=== PATIENT | male | born 1955 | race Two or more races ===

== ENCOUNTER 2016-07-02 16:16 | Inpatient (IN) | payer MEDICAID ==
[~2016-07-02] VITALS: Ht 165.1 cm; Wt 65.8 kg
[2016-07-02] MEDS ORDERED: Famotidine 20 MG/ 2ML VIAL IVP ONE (16:30)
[2016-07-02 17:27] LABS: MEAN CORPUSCULAR HEMOGLOBIN 31.6 PG (27.0-31.0); MEAN CORPUSCULAR HGB CONC 33.8 G/DL (32.0-36.0); MEAN CORPUSCULAR VOLUME 93 FL (80-99); MEAN PLATELET VOLUME 6.4 FL (6.5-10.1); PLATELET COUNT 198 K/UL (150-450); WHITE BLOOD COUNT 15.5 K/UL (4.8-10.8)
[2016-07-02 17:30] LABS: BASOPHILS % (AUTO) 0.8 % (0.0-2.0); EOSINOPHILS % (AUTO) 0.2 % (0.0-3.0); LYMPHOCYTES % (AUTO) 4.7 % (20.0-45.0); MONOCYTES % (AUTO) 4.5 % (1.0-10.0); NEUTROPHILS % (AUTO) 89.9 % (45.0-75.0)
[2016-07-02 17:38] LABS: APPEARANCE,URINE CLEAR; KETONES,URINE NEGATIVE (NEGATIVE); LEUKOCYTE ESTERASE ,URINE NEGATIVE (NEGATIVE); NITRITE,URINE NEGATIVE (NEGATIVE); PH,URINE 5 (4.5-8.0); PROTEIN,URINE NEGATIVE (NEGATIVE); UROBILINOGEN,URINE NORMAL MG/DL (0.0-1.0)
[2016-07-02 17:45] LABS: TROPONIN I < 0.30 ng/mL (<=0.30)
[2016-07-02 17:46] LABS: ALANINE AMINOTRANSFERASE 24 U/L (3-41); ALBUMIN/GLOBULIN RATIO 1.3 (1.0-2.7); ANION GAP 21 (5-15); ASPARTATE AMINO TRANSFERASE 23 U/L (5-40); CALCIUM 9.4 mg/dL (8.6-10.2); CARBON DIOXIDE 20 mEQ/L (20-30); CHLORIDE 100 mEQ/L (98-107); CREATININE 0.9 mg/dL (0.7-1.2); GLOMERULAR FILTRATION RATE > 60 mL/min (>60); HEMOLYSIS 27; LIPASE 28 U/L (< 60); POTASSIUM 3.5 mEQ/L (3.4-4.9); SODIUM 141 mEQ/L (135-145); TOTAL PROTEIN 7.6 g/dL (6.6-8.7)
[2016-07-02] MEDS ORDERED: Ampicillin/Sulbactam Sod 3 GM in NS 110 ML IVPB ONE (18:00)
[2016-07-02] MEDS ORDERED: Unasyn 3gm Inj ONE (18:04)
[2016-07-02 18:11] LABS: BILIRUBIN,DIRECT 0.2 mg/dL (0.1-0.3)
[2016-07-02 18:12] VITALS: BP 114/67
[2016-07-02 18:59] LABS: REFLEX LACTIC ACID YES OR NO YES
[2016-07-02] MEDS ORDERED: HTN MED (19:49)
[2016-07-02] MEDS ORDERED: IBUPROFEN600 MG ORAL (19:49)
[2016-07-02] MEDS ORDERED: GOUT MED (19:49)
[2016-07-02] MEDS ORDERED: DEPRESSION MED (19:50)
[2016-07-02] MEDS ORDERED: Morphine Sulfate 2mg/ml Inj IVP PRN (20:30)
[2016-07-02] MEDS ORDERED: Mylanta II UD 30ml ORAL PRN (20:30)
[2016-07-02] MEDS ORDERED: Nitroglycerin Subl 0.4mg tab (Bottle Of 25) SL PRN (20:30)
[2016-07-02] MEDS ORDERED: Miralax 17gm pkt ORAL PRN (20:30)
--- NOTE | 2016-07-02 22:04 | Emergency Room Report ---
History of Present Illness General Chief Complaint: Abdominal Pain Source: Patient, EMS Present Illness HPI Patient is a 61-year-old male presented after having increased epigastric pain. Patient had gradual onset of symptoms. Patient reports having prior history of pain after drinking coffee. He states that he had been having some nausea. Patient states he has not had alcohol for several months. Patient denies any history of ulcer disease a cardiac disease. Allergies: Coded Allergies: No Known Allergies (Unverified , 07/02/16) Patient History Past Medical History: see triage record Reviewed Nursing Documentation: PMH: Agreed, PSxH: Agreed Nursing Documentation-PMH Hx Hypertension: Yes Review of Systems All Other Systems: negative except mentioned in HPI Physical Exam Vital Signs Date Time Temp Pulse Resp B/P Pulse Ox O2 Delivery O2 Flow Rate FiO2 07/02/16 15:51 100.6 142 16 159/109 97 07/02/16 18:12 Room Air Sp02 EP Interpretation: reviewed, normal General Appearance: normal inspection, well appearing, no apparent distress, alert, GCS 15 Head: atraumatic ENT: normal ENT inspection, hearing grossly normal, normal voice Neck: normal inspection, full range of motion, supple, no bony tend Respiratory: normal inspection, lungs clear, normal breath sounds, no respiratory distress, no retraction, no wheezing Cardiovascular #1: regular rate, rhythm, no edema Gastrointestinal: normal inspection, normal bowel sounds, non tender, soft, no guarding, no hernia Genitourinary: no CVA tenderness Musculoskeletal: normal inspection, back normal, normal range of motion Neurologic: normal inspection, alert, oriented x3, responsive, 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 Differential diagnoses included ischemic bowel, appendicitis, perforated viscus, abdominal aortic aneurysm, inferior myocardial infarction, viral gastroenteritis. Because of complexity of patient's case laboratory testing and imaging studies were ordered. Patient noted have elevated white blood count. Laboratory testing also showed elevated lactic acid level. Patient was started on IV Fluids and antibiotics. Dr. Aj Lau was contacted for inpatient management. Labs Test 07/02/16 16:39 07/02/16 16:50 07/02/16 19:25 White Blood Count 15.5 K/UL (4.8-10.8) Red Blood Count 5.10 M/UL (4.70-6.10) Hemoglobin 16.1 G/DL (14.2-18.0) Hematocrit 47.5 % (42.0-52.0) Mean Corpuscular Volume 93 FL (80-99) Mean Corpuscular Hemoglobin 31.6 PG (27.0-31.0) Mean Corpuscular Hemoglobin Concent 33.8 G/DL (32.0-36.0) Red Cell Distribution Width 12.0 % (11.6-14.8) Platelet Count 198 K/UL (150-450) Mean Platelet Volume 6.4 FL (6.5-10.1) Neutrophils (%) (Auto) 89.9 % (45.0-75.0) Lymphocytes (%) (Auto) 4.7 % (20.0-45.0) Monocytes (%) (Auto) 4.5 % (1.0-10.0) Eosinophils (%) (Auto) 0.2 % (0.0-3.0) Basophils (%) (Auto) 0.8 % (0.0-2.0) Sodium Level 141 mEQ/L (135-145) Potassium Level 3.5 mEQ/L (3.4-4.9) Chloride Level 100 mEQ/L (98-107) Carbon Dioxide Level 20 mEQ/L (20-30) Anion Gap 21 (5-15) Blood Urea Nitrogen 16 mg/dL (7-23) Creatinine 0.9 mg/dL (0.7-1.2) Estimat Glomerular Filtration Rate > 60 mL/min (>60) Glucose Level 106 mg/dL (74-106) Calcium Level 9.4 mg/dL (8.6-10.2) Total Bilirubin 1.1 mg/dL (0.0-1.2) Direct Bilirubin 0.2 mg/dL (0.1-0.3) Aspartate Amino Transf (AST/SGOT) 23 U/L (5-40) Alanine Aminotransferase (ALT/SGPT) 24 U/L (3-41) Alkaline Phosphatase 61 U/L (40-129) Troponin I < 0.30 ng/mL (<=0.30) Total Protein 7.6 g/dL (6.6-8.7) Albumin 4.3 g/dL (3.5-5.2) Globulin 3.3 g/dL Albumin/Globulin Ratio 1.3 (1.0-2.7) Lipase 28 U/L (< 60) Urine Color Pale yellow Urine Appearance Clear Urine pH 5 (4.5-8.0) Urine Specific [place] 1.015 (1.005-1.035) Urine Protein Negative (NEGATIVE) Urine Glucose (UA) Negative (NEGATIVE) Urine Ketones Negative (NEGATIVE) Urine Occult Blood Negative (NEGATIVE) Urine Nitrite Negative (NEGATIVE) Urine Bilirubin Negative (NEGATIVE) Urine Urobilinogen Normal MG/DL (0.0-1.0) Urine Leukocyte Esterase Negative (NEGATIVE) Lactic Acid Level 1.50 mmol/L (0.66-2.22) Last Vital Signs Date Time Temp Pulse Resp B/P Pulse Ox O2 Delivery O2 Flow Rate FiO2 07/02/16 18:12 99.0 104 23 114/67 97 Room Air Status: unchanged Disposition: ADMITTED INPATIENT Condition: Serious Referrals: NOT CHOSEN GISELE/,REFERRING (PCP) Yunier Powers Jul 02, 2016 22:04
[2016-07-02] MEDS: D5 1/2NS 1,000 ML IV SCH (22:13)
[2016-07-02] MEDS: Heparin 5000 units/ml inj SUBQ SCH (22:14)
[2016-07-02 22:33] VITALS: BP 117/70
[2016-07-03] VITALS: BP 125/71
[2016-07-03] MEDS: Piperacillin/Tazobactam 3.375 GM in NS 110 ML IVPB SCH ×4 (00:06→23:51)
[2016-07-03 04:00] VITALS: BP 119/76
[2016-07-03 07:10] LABS: BASOPHILS % (AUTO) 0.6 % (0.0-2.0); EOSINOPHILS % (AUTO) 0.3 % (0.0-3.0); LYMPHOCYTES % (AUTO) 8.9 % (20.0-45.0); MEAN CORPUSCULAR HEMOGLOBIN 31.2 PG (27.0-31.0); MEAN CORPUSCULAR HGB CONC 33.9 G/DL (32.0-36.0); MEAN CORPUSCULAR VOLUME 92 FL (80-99); MEAN PLATELET VOLUME 7.2 FL (6.5-10.1); MONOCYTES % (AUTO) 5.8 % (1.0-10.0); NEUTROPHILS % (AUTO) 84.5 % (45.0-75.0); PLATELET COUNT 190 K/UL (150-450); RED BLOOD COUNT 4.91 M/UL (4.70-6.10); RED CELL DISTRIBUTION WIDTH 11.7 % (11.6-14.8); WHITE BLOOD COUNT 11.4 K/UL (4.8-10.8)
[2016-07-03 07:44] LABS: ALANINE AMINOTRANSFERASE 18 U/L (3-41); ALBUMIN/GLOBULIN RATIO 1.5 (1.0-2.7); AMYLASE 23 U/L (10-110); ANION GAP 18 (5-15); ASPARTATE AMINO TRANSFERASE 17 U/L (5-40); CALCIUM 8.7 mg/dL (8.6-10.2); CARBON DIOXIDE 24 mEQ/L (20-30); CHLORIDE 96 mEQ/L (98-107); GLOMERULAR FILTRATION RATE > 60 mL/min (>60); HEMOLYSIS 3; LIPASE 16 U/L (< 60); POTASSIUM 3.5 mEQ/L (3.4-4.9); SODIUM 138 mEQ/L (135-145); TOTAL PROTEIN 6.6 g/dL (6.6-8.7)
[2016-07-03 07:55] VITALS: BP 141/82
[2016-07-03 07:56] LABS: BILIRUBIN,DIRECT 0.3 mg/dL (0.1-0.3)
[2016-07-03] MEDS: Pantoprazole Inj IV SCH (08:20)
[2016-07-03] MEDS: Heparin 5000 units/ml inj SUBQ SCH ×2 (08:36→20:43)
--- NOTE | 2016-07-03 10:28 | Consultation ---
DATE OF CONSULTATION: 07/03/2016 GASTROENTEROLOGY CONSULTATION CHIEF COMPLAINT: Abdominal pain. HISTORY OF PRESENT ILLNESS: This is a 61-year-old male, admitted to hospital with complaint of epigastric abdominal pain associated with nausea. No hematemesis. No dysphagia. No odynophagia. No melena. No hematochezia. No weight loss. PAST MEDICAL HISTORY: None. MEDICATIONS: None. ALLERGIES: None. SOCIAL HISTORY: The patient denies any tobacco usage. The patient denies any IV drug use. The patient apparently he used to drink, quit about three months ago. FAMILY HISTORY: Noncontributory. REVIEW OF SYSTEMS: A 10-point review of systems was performed and pertinent positives in history of present illness. PHYSICAL EXAMINATION: VITAL SIGNS: Temperature 97.7 degrees, pulse 71, respirations 18, and blood pressure 119/76. HEENT: Normocephalic and atraumatic. Sclerae anicteric. NECK: Supple. No evidence of lymphadenopathy. CARDIOVASCULAR: Regular rate and rhythm. Plus S1 and S2. LUNGS: Clear to auscultation bilaterally. ABDOMEN: Soft. There is tenderness to palpation in the epigastric area. No rebound. No guarding. EXTREMITIES: No cyanosis. No clubbing. No edema. LABORATORY DATA: White count is 11.4, hemoglobin 16, hematocrit 45, and platelet count is 190,000. Sodium is 141, potassium 3.5, BUN is 16, and creatinine 0.9. Liver function normal. Lipase is normal. ASSESSMENT: This is a 61-year-old male with epigastric abdominal pain. The patient was diagnosed with epigastric ulcer, gastritis, gallbladder disease, pancreatitis. PLAN: Plan to get a CT of the abdomen and pelvis with contrast. Advance diet. Repeat laboratories. Start the patient on Protonix. I want to thank, Dr. Aj Lau, for this kind referral. London Linton M.D. DR: ARANZA JOB#: [id number] CC: Aj Lau M.D.; Fax#: [phone]
[2016-07-03] MEDS: D5 1/2NS 1,000 ML IV SCH ×2 (11:20→20:50)
[2016-07-03 12:00] VITALS: BP 148/82
--- NOTE | 2016-07-03 15:58 | Consultation ---
History of Present Illness General Date patient seen: Jul 03, 2016 Time patient seen: 14:00 Chief Complaint: Abdominal Pain Referring physician: dr Lau Reason for Consultation: inpatient management Present Illness HPI 61-year-old male presented with increased epigastric pain with gradual onset of symptoms. Patient reported having prior history of the same pain after drinking coffee. reported some nausea, no vomiting denied blood in stool no ETOH x few months . No prior history of cardiac disease, no chest pain, no SOB, no palpitations denies any GI problems in the past Workup in ED revealed leucocytosis, no fever. stable LFT, lipase normal lactic acid, stable electrolytes, patient was admitted for further management Allergies: Coded Allergies: No Known Allergies (Unverified , 07/02/16) Medication History Scheduled PRN Ibuprofen* (Motrin*), 600 MG ORAL Q6H PRN for For Pain, (Reported) Miscellaneous Medications [Depression Med], (Reported) [Gout Med], (Reported) [Htn Med], (Reported) Patient History History Provided By: Patient Healthcare decision maker Resuscitation status Full Code Advanced Directive on File Past Medical/Surgical History Past Medical/Surgical History: (1) HTN (hypertension) Review of Systems Eye: Reports: other - cataract ENT: Reports: no symptoms Respiratory: Reports: no symptoms Cardiovascular: Reports: other - HTN Gastrointestinal: Reports: see HPI Genitourinary: Reports: no symptoms Musculoskeletal: Reports: no symptoms Psychiatric: Reports: no symptoms Neurological: Reports: no symptoms Endocrine: Reports: no symptoms Hematologic/Lymphatic: Reports: no symptoms Physical Exam General Appearance: WD/WN, no apparent distress, alert Lines, tubes and drains: peripheral HEENT: normocephalic, mucous membranes moist Neck: non-tender, normal alignment, supple Respiratory/Chest: chest wall non-tender, lungs clear, normal breath sounds, no respiratory distress, no accessory muscle use Cardiovascular/Chest: normal peripheral pulses, normal rate, regular rhythm, no JVD Abdomen: normal bowel sounds - mild epigastric tenderness, no rebound, no guarding , soft Extremities: non-tender, no calf tenderness, normal capillary refill Skin Exam: normal pigmentation, warm/dry Neurologic: no motor/sensory deficits, alert, oriented x 3, responsive, normal mood/affect Musculoskeletal: normal muscle bulk Last 24 Hour Vital Signs Date Time Temp Pulse Resp B/P Pulse Ox O2 Delivery O2 Flow Rate FiO2 07/03/16 13:59 98.4 07/03/16 12:00 101.5 82 19 148/82 95 Room Air 07/03/16 07:55 98.4 81 19 141/82 98 Room Air 07/03/16 04:00 97.7 71 18 119/76 97 Room Air 07/03/16 00:00 97.9 87 20 125/71 95 Room Air 07/02/16 22:45 99.3 07/02/16 22:33 99.3 90 18 117/70 97 Room Air 07/02/16 22:00 81 17 121/70 96 Room Air 07/02/16 18:12 99.0 104 23 114/67 97 Room Air 07/02/16 15:51 100.6 142 16 159/109 97 Intake and Output 07/02/16 07/03/16 19:00 07:00 Intake Total 610 ml 485.0 ml Balance 610 ml 485.0 ml Intake IV Total 610 ml 485.0 ml # Voids 1 Laboratory Tests Test 07/02/16 16:39 07/02/16 16:50 07/02/16 19:25 07/03/16 05:00 White Blood Count 15.5 K/UL (4.8-10.8) H 11.4 K/UL (4.8-10.8) H Red Blood Count 5.10 M/UL (4.70-6.10) 4.91 M/UL (4.70-6.10) Hemoglobin 16.1 G/DL (14.2-18.0) 15.3 G/DL (14.2-18.0) Hematocrit 47.5 % (42.0-52.0) 45.1 % (42.0-52.0) Mean Corpuscular Volume 93 FL (80-99) 92 FL (80-99) Mean Corpuscular Hemoglobin 31.6 PG (27.0-31.0) H 31.2 PG (27.0-31.0) H Mean Corpuscular Hemoglobin Concent 33.8 G/DL (32.0-36.0) 33.9 G/DL (32.0-36.0) Red Cell Distribution Width 12.0 % (11.6-14.8) 11.7 % (11.6-14.8) Platelet Count 198 K/UL (150-450) 190 K/UL (150-450) Mean Platelet Volume 6.4 FL (6.5-10.1) L 7.2 FL (6.5-10.1) Neutrophils (%) (Auto) 89.9 % (45.0-75.0) H 84.5 % (45.0-75.0) H Lymphocytes (%) (Auto) 4.7 % (20.0-45.0) L 8.9 % (20.0-45.0) L Monocytes (%) (Auto) 4.5 % (1.0-10.0) 5.8 % (1.0-10.0) Eosinophils (%) (Auto) 0.2 % (0.0-3.0) 0.3 % (0.0-3.0) Basophils (%) (Auto) 0.8 % (0.0-2.0) 0.6 % (0.0-2.0) Sodium Level 141 mEQ/L (135-145) 138 mEQ/L (135-145) Potassium Level 3.5 mEQ/L (3.4-4.9) 3.5 mEQ/L (3.4-4.9) Chloride Level 100 mEQ/L (98-107) 96 mEQ/L (98-107) L Carbon Dioxide Level 20 mEQ/L (20-30) 24 mEQ/L (20-30) Anion Gap 21 (5-15) H 18 (5-15) H Blood Urea Nitrogen 16 mg/dL (7-23) 15 mg/dL (7-23) Creatinine 0.9 mg/dL (0.7-1.2) 1.0 mg/dL (0.7-1.2) Estimat Glomerular Filtration Rate > 60 mL/min (>60) > 60 mL/min (>60) Glucose Level 106 mg/dL (74-106) 109 mg/dL (74-106) H Lactic Acid Level 2.10 mmol/L (0.66-2.22) 1.50 mmol/L (0.66-2.22) Calcium Level 9.4 mg/dL (8.6-10.2) 8.7 mg/dL (8.6-10.2) Total Bilirubin 1.1 mg/dL (0.0-1.2) 2.3 mg/dL (0.0-1.2) H Direct Bilirubin 0.2 mg/dL (0.1-0.3) 0.3 mg/dL (0.1-0.3) Aspartate Amino Transf (AST/SGOT) 23 U/L (5-40) 17 U/L (5-40) Alanine Aminotransferase (ALT/SGPT) 24 U/L (3-41) 18 U/L (3-41) Alkaline Phosphatase 61 U/L (40-129) 61 U/L (40-129) Troponin I < 0.30 ng/mL (<=0.30) Total Protein 7.6 g/dL (6.6-8.7) 6.6 g/dL (6.6-8.7) Albumin 4.3 g/dL (3.5-5.2) 4.0 g/dL (3.5-5.2) Globulin 3.3 g/dL 2.6 g/dL Albumin/Globulin Ratio 1.3 (1.0-2.7) 1.5 (1.0-2.7) Lipase 28 U/L (< 60) 16 U/L (< 60) Urine Color Pale yellow Urine Appearance Clear Urine pH 5 (4.5-8.0) Urine Specific [place] 1.015 (1.005-1.035) Urine Protein Negative (NEGATIVE) Urine Glucose (UA) Negative (NEGATIVE) Urine Ketones Negative (NEGATIVE) Urine Occult Blood Negative (NEGATIVE) Urine Nitrite Negative (NEGATIVE) Urine Bilirubin Negative (NEGATIVE) Urine Urobilinogen Normal MG/DL (0.0-1.0) Urine Leukocyte Esterase Negative (NEGATIVE) Activated Partial Thromboplast Time 29 SEC (23-33) Amylase Level 23 U/L (10-110) Height (Feet): 5 Height (Inches): 7.00 Weight (Pounds): 145 Medications Current Medications Medications (Trade) Dose Ordered Sig/Niraj Route PRN Reason Start Time Stop Time Status Last Admin Dose Admin Acetaminophen (Tylenol) 650 mg Q4H PRN ORAL fever 07/02/16 20:30 08/01/16 20:29 07/03/16 13:00 Al Hydroxide/Mg Hydroxide (Mylanta II) 30 ml Q6H PRN ORAL dyspepsia 07/02/16 20:30 08/01/16 20:29 Dextrose STAT PRN IV Hypoglycemia 07/02/16 20:30 08/01/16 20:29 Dextrose/Sodium Chloride (D5 0.45% NS) 1,000 ml @ 75 mls/hr [id number] IV 07/02/16 22:00 08/01/16 21:59 07/02/16 22:13 Diphenhydramine HCl (Benadryl) 25 mg Q6H PRN ORAL Itching/Pruritis 07/02/16 20:30 08/01/16 20:29 Heparin Sodium (Porcine) (Heparin 5000 units/ml) 5,000 units EVERY 12 HOURS SUBQ 07/02/16 22:00 08/01/16 21:59 07/03/16 08:36 Morphine Sulfate (Morphine Sulfate) 2 mg EVERY 4 HOURS PRN IVP severe Pain (Pain Scale 7-10) 07/02/16 20:30 07/09/16 20:29 07/02/16 22:15 Nitroglycerin (Ntg) 0.4 mg Q5M X 3 DOSES PRN SL Prn Chest Pain 07/02/16 20:30 08/01/16 20:29 Ondansetron HCl (Zofran) 4 mg Q6H PRN IVP Nausea & Vomiting 07/02/16 20:30 08/01/16 20:29 Pantoprazole (Protonix) 40 mg DAILY IV 07/03/16 09:00 08/02/16 08:59 07/03/16 08:20 Piperacillin Sod/ Tazobactam Sod/ Sodium Chloride (Zosyn/Sodium Chloride) 110 ml @ 27.5 mls/hr Q8H IVPB 07/03/16 00:00 07/10/16 00:00 07/03/16 08:19 Polyethylene Glycol (Miralax) 17 gm HSPRN PRN ORAL Constipation 07/02/16 20:30 08/01/16 20:29 Temazepam (Restoril) 15 mg HSPRN PRN ORAL Insomnia 07/02/16 20:30 07/09/16 20:29 Assessment/Plan Assessment/Plan ASSESSMENT possible sepsis epigastric abdominal pain (ulcer vs gastritis vs GB disease vs pancreatitis vs infectious etiology/enteritis) HTN PLAN OF CARE [facility] floor IVF Liquid diet antiemetic prn CT AP today GI follows advance diet as tolerated after CT A/P taken started on Protonix close BP monitoring, currently stable DVT prophylaxis avoid tobacco, coffee, NSAIDs pain management case discussed and evaluated by supervising physician Mauricio (Lisa),Cherie ELI Jul 03, 2016 15:58
[2016-07-03 16:00] VITALS: BP 122/61
--- NOTE | 2016-07-03 16:13 | History & Physical ---
History and Physical History & Physicial Dictated for Int Med-Dr Lau no. [id number]. JOSE JOSHI Jul 03, 2016 16:13
[2016-07-03 20:00] VITALS: BP 129/59
--- NOTE | 2016-07-03 21:48 | History and Physical Report ---
DATE OF ADMISSION: 07/02/[address] Lau. CHIEF COMPLAINT: The patient is a 61-year-old male, presents with chief complaint of epigastric pain. HISTORY OF PRESENT ILLNESS: The patient states he has been having increasing epigastric pain over the last week. This has been worsening over the last couple of days. The patient states the pain has become intolerable. The patient previously had history of epigastric pain after drinking coffee. The patient states he stopped drinking alcohol for several months secondary to epigastric pain. The patient presented to [facility]. The patient was admitted for epigastric pain to rule out pancreatitis versus peptic ulcer disease. REVIEW OF SYSTEMS: Constitutional: The patient denies weight loss or weight gain. The patient denies fevers or chills. HEENT: The patient denies ear or throat pain. Cardiovascular: The patient denies palpitations or chest pain. Chest: The patient denies wheeze or shortness of breath. Abdomen: The patient complains of epigastric pain as above. The patient denies nausea, vomiting, diarrhea, or constipation. Genitourinary: The patient denies dysuria or increased frequency of urination. Neuromuscular: The patient denies seizures or generalized weakness. PAST MEDICAL HISTORY: 1. Gout. 2. Major depression. PAST SURGICAL HISTORY: The patient denies. CURRENT MEDICATIONS: Unknown. ALLERGIES: No known drug allergies. SOCIAL HISTORY: The patient is single and lives alone. The patient denies tobacco or alcohol use. PHYSICAL EXAMINATION: VITAL SIGNS: Temperature is 97.9, respirations 20, pulse 87, and blood pressure 125/71. GENERAL: The patient is a well-developed and well-nourished male, in no apparent distress. HEENT: Eyes, pupils are equal and responsive to light and accommodation. Extraocular movements are intact. NECK: Supple without lymphadenopathy. CHEST: Lungs are clear to auscultation bilaterally without wheezes or rales. CARDIOVASCULAR: Regular rhythm and rate. S1 and S2 are normal without murmurs, rubs, or gallops. ABDOMEN: Soft, diffusely tender with positive bowel sounds. No evidence of hepatosplenomegaly. Currently, no rebound or guarding. EXTREMITIES: Negative for clubbing, cyanosis, or edema. RECTAL/GENITAL: Refused. NEUROLOGIC: Cranial nerves II through XII were grossly intact without focal deficits. Motor strength is 5/5 bilaterally. Deep tendon reflexes are 2+ plantar. LABORATORY STUDIES: WBC 15.5, hemoglobin 16.1, hematocrit 47.5, and platelets 198,000. Sodium 141, potassium 3.5, chloride 100, CO2 21, BUN 16, creatinine 0.9, and glucose 106. Total bilirubin elevated at 2.3. Urinalysis was within normal limits. ASSESSMENT: This is a 61-year-old male. 1. Epigastric pain. 2. Elevated liver function tests. 3. Gout. 4. Major depression. TREATMENT: 1. Epigastric pain/elevated liver function tests. A Gastroenterology consultation is pending with Dr. Linton. We will follow recommendations of Gastroenterology. A CT scan of the abdomen and pelvis is pending. We will follow recommendations of Gastroenterology. 2. Gout. 3. Major depression. Jm Quintero M.D. DR: CRYSTAL JOB#: [id number] CC:
[2016-07-04] VITALS: BP 102/56
[2016-07-04 04:00] VITALS: BP 116/70
[2016-07-04] MEDS: Piperacillin/Tazobactam 3.375 GM in NS 110 ML IVPB SCH ×3 (07:56→23:43)
[2016-07-04] MEDS: Heparin 5000 units/ml inj SUBQ SCH ×2 (07:57→21:19)
[2016-07-04] MEDS: Pantoprazole Inj IV SCH (07:58)
[2016-07-04 08:00] VITALS: BP 121/77
--- NOTE | 2016-07-04 09:03 | General Progress Note ---
Assessment/Plan Problem List: (1) Abdominal pain ICD Codes: R10.9 - Unspecified abdominal pain SNOMED: 62616914 (2) HTN (hypertension) ICD Codes: I10 - Essential (primary) hypertension SNOMED: 67425630 Assessment/Plan fu CT advance diet EGD in am Subjective ROS Limited/Unobtainable: Yes Allergies: Coded Allergies: No Known Allergies (Unverified , 07/02/16) Subjective abd pain Objective Last 24 Hour Vital Signs Date Time Temp Pulse Resp B/P Pulse Ox O2 Delivery O2 Flow Rate FiO2 07/04/16 04:00 97.5 71 19 116/70 96 Room Air 07/04/16 04:00 97.5 71 19 116/70 97 Room Air 07/04/16 00:12 97.2 07/04/16 00:10 97.2 07/04/16 00:00 97.2 75 20 102/56 97 Room Air 07/03/16 20:00 100.0 80 20 129/59 95 Room Air 07/03/16 16:00 99.0 76 18 122/61 94 Room Air 07/03/16 12:00 101.5 82 19 148/82 95 Room Air Intake and Output 07/03/16 07/04/16 19:00 07:00 Intake Total 587.5 ml 1092.5 ml Output Total 390 ml Balance 587.5 ml 702.5 ml Intake IV Total 587.5 ml 1092.5 ml Output Urine Total 390 ml # Voids 2 Height (Feet): 5 Height (Inches): 7.00 Weight (Pounds): 145 General Appearance: alert EENT: normal ENT inspection Neck: supple Cardiovascular: normal rate Respiratory/Chest: decreased breath sounds Abdomen: normal bowel sounds, soft, tender Extremities: non-tender ANGUS CHARLES Jul 04, 2016 09:03
[2016-07-04 10:12] LABS: EOSINOPHILS % (AUTO) 3.7 % (0.0-3.0); LYMPHOCYTES % (AUTO) 21.8 % (20.0-45.0); MEAN CORPUSCULAR HEMOGLOBIN 30.7 PG (27.0-31.0); MEAN CORPUSCULAR HGB CONC 33.6 G/DL (32.0-36.0); MEAN CORPUSCULAR VOLUME 91 FL (80-99); MEAN PLATELET VOLUME 7.4 FL (6.5-10.1); MONOCYTES % (AUTO) 10.7 % (1.0-10.0); NEUTROPHILS % (AUTO) 62.9 % (45.0-75.0); PLATELET COUNT 170 K/UL (150-450); RED BLOOD COUNT 5.06 M/UL (4.70-6.10); RED CELL DISTRIBUTION WIDTH 11.5 % (11.6-14.8); WHITE BLOOD COUNT 5.3 K/UL (4.8-10.8)
[2016-07-04 10:26] LABS: ALANINE AMINOTRANSFERASE 17 U/L (3-41); ALBUMIN/GLOBULIN RATIO 1.1 (1.0-2.7); ANION GAP 14 (5-15); ASPARTATE AMINO TRANSFERASE 15 U/L (5-40); CALCIUM 8.2 mg/dL (8.6-10.2); CARBON DIOXIDE 25 mEQ/L (20-30); CHLORIDE 97 mEQ/L (98-107); CREATININE 0.8 mg/dL (0.7-1.2); GLOMERULAR FILTRATION RATE > 60 mL/min (>60); HEMOLYSIS 4; POTASSIUM 3.9 mEQ/L (3.4-4.9); SODIUM 136 mEQ/L (135-145); TOTAL PROTEIN 6.5 g/dL (6.6-8.7)
[2016-07-04 10:47] LABS: AMYLASE 25 U/L (10-110); LIPASE 23 U/L (< 60)
[2016-07-04 10:52] LABS: BILIRUBIN,DIRECT 0.3 mg/dL (0.1-0.3)
[2016-07-04 12:00] VITALS: BP 105/75
[2016-07-04] MEDS: D5 1/2NS 1,000 ML IV SCH (12:51)
--- NOTE | 2016-07-04 13:51 | Pulmonology Progress Note ---
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 discussed and evaluated by supervising physician Subjective Allergies: Coded Allergies: No Known Allergies (Unverified , 07/02/16) Subjective leukocytosis resolved afebrile no signs of respiratory distress intermittent abdominal pain Objective Last 24 Hour Vital Signs Date Time Temp Pulse Resp B/P Pulse Ox O2 Delivery O2 Flow Rate FiO2 07/04/16 12:00 98.7 78 19 105/75 96 Room Air 07/04/16 08:00 97.9 96 18 121/77 100 Room Air 07/04/16 04:00 97.5 71 19 116/70 96 Room Air 07/04/16 04:00 97.5 71 19 116/70 97 Room Air 07/04/16 00:12 97.2 07/04/16 00:10 97.2 07/04/16 00:00 97.2 75 20 102/56 97 Room Air 07/03/16 20:00 100.0 80 20 129/59 95 Room Air 07/03/16 16:00 99.0 76 18 122/61 94 Room Air Intake and Output 07/03/16 07/04/16 19:00 07:00 Intake Total 587.5 ml 1092.5 ml Output Total 390 ml Balance 587.5 ml 702.5 ml Intake IV Total 587.5 ml 1092.5 ml Output Urine Total 390 ml # Voids 2 Objective General Appearance: WD/WN, no apparent distress, alert Lines, tubes and drains: peripheral HEENT: normocephalic, mucous membranes moist Neck: non-tender, normal alignment, supple Respiratory/Chest: chest wall non-tender, lungs clear, normal breath sounds, no respiratory distress, no accessory muscle use Cardiovascular/Chest: normal peripheral pulses, normal rate, regular rhythm, no JVD Abdomen: normal bowel sounds - mild epigastric tenderness, no rebound, no guarding , soft Extremities: non-tender, no calf tenderness, normal capillary refill Skin Exam: normal pigmentation, warm/dry Neurologic: no motor/sensory deficits, alert, oriented x 3, responsive, normal mood/affect Musculoskeletal: normal muscle bulk Microbiology Date/Time Source Procedure Growth Status 07/02/16 16:39 Blood Blood Culture - Preliminary NO GROWTH AFTER 24 HOURS Resulted 07/02/16 16:29 Blood Blood Culture - Preliminary NO GROWTH AFTER 24 HOURS Resulted Laboratory Tests 07/04/16 09:45: White Blood Count 5.3#, Red Blood Count 5.06, Hemoglobin 15.5, Hematocrit 46.2, Mean Corpuscular Volume 91, Mean Corpuscular Hemoglobin 30.7, Mean Corpuscular Hemoglobin Concent 33.6, Red Cell Distribution Width 11.5L, Platelet Count 170, Mean Platelet Volume 7.4, Neutrophils (%) (Auto) 62.9, Lymphocytes (%) (Auto) 21.8, Monocytes (%) (Auto) 10.7H, Eosinophils (%) (Auto) 3.7H, Basophils (%) ( Auto) 1.0, Sodium Level 136, Potassium Level 3.9, Chloride Level 97L, Carbon Dioxide Level 25, Anion Gap 14, Blood Urea Nitrogen 8, Creatinine 0.8, Estimat Glomerular Filtration Rate > 60, Glucose Level 114H, Calcium Level 8.2L, Total Bilirubin 1.5H, Direct Bilirubin 0.3, Aspartate Amino Transf (AST/SGOT) 15, Alanine Aminotransferase (ALT/SGPT) 17, Alkaline Phosphatase 49, Total Protein 6.5L, Albumin 3.5, Globulin 3.0, Albumin/Globulin Ratio 1.1, Amylase Level 25, Lipase 23 Current Medications Medications (Trade) Dose Ordered Sig/Niraj Route PRN Reason Start Time Stop Time Status Last Admin Dose Admin Acetaminophen (Tylenol) 650 mg Q4H PRN ORAL fever 07/02/16 20:30 08/01/16 20:29 07/03/16 23:05 Al Hydroxide/Mg Hydroxide (Mylanta II) 30 ml Q6H PRN ORAL dyspepsia 07/02/16 20:30 08/01/16 20:29 Dextrose STAT PRN IV Hypoglycemia 07/02/16 20:30 08/01/16 20:29 Dextrose/Sodium Chloride (D5 0.45% NS) 1,000 ml @ 75 mls/hr [id number] IV 07/02/16 22:00 08/01/16 21:59 07/04/16 12:51 Diphenhydramine HCl (Benadryl) 25 mg Q6H PRN ORAL Itching/Pruritis 07/02/16 20:30 08/01/16 20:29 Heparin Sodium (Porcine) (Heparin 5000 units/ml) 5,000 units EVERY 12 HOURS SUBQ 07/02/16 22:00 08/01/16 21:59 07/04/16 07:57 Morphine Sulfate (Morphine Sulfate) 2 mg EVERY 4 HOURS PRN IVP severe Pain (Pain Scale 7-10) 07/02/16 20:30 07/09/16 20:29 07/02/16 22:15 Nitroglycerin (Ntg) 0.4 mg Q5M X 3 DOSES PRN SL Prn Chest Pain 07/02/16 20:30 08/01/16 20:29 Ondansetron HCl (Zofran) 4 mg Q6H PRN IVP Nausea & Vomiting 07/02/16 20:30 08/01/16 20:29 Pantoprazole (Protonix) 40 mg DAILY IV 07/03/16 09:00 08/02/16 08:59 07/04/16 07:58 Piperacillin Sod/ Tazobactam Sod/ Sodium Chloride (Zosyn/Sodium Chloride) 110 ml @ 27.5 mls/hr Q8H IVPB 07/03/16 00:00 07/10/16 00:00 07/04/16 07:56 Polyethylene Glycol (Miralax) 17 gm HSPRN PRN ORAL Constipation 07/02/16 20:30 08/01/16 20:29 Temazepam (Restoril) 15 mg HSPRN PRN ORAL Insomnia 07/02/16 20:30 07/09/16 20:29 Mauricio ChahalCherie velazco NP Jul 04, 2016 13:51
--- NOTE | 2016-07-04 14:50 | Internal Med Progress Note ---
Subjective Date of Service: Jul 04, 2016 Physician Name JoshiJm Attending Physician Aj Lau MD Current Medications Medications (Trade) Dose Ordered Sig/Niraj Route PRN Reason Start Time Stop Time Status Last Admin Dose Admin Acetaminophen (Tylenol) 650 mg Q4H PRN ORAL fever 07/02/16 20:30 08/01/16 20:29 07/03/16 23:05 Al Hydroxide/Mg Hydroxide (Mylanta II) 30 ml Q6H PRN ORAL dyspepsia 07/02/16 20:30 08/01/16 20:29 Dextrose STAT PRN IV Hypoglycemia 07/02/16 20:30 08/01/16 20:29 Dextrose/Sodium Chloride (D5 0.45% NS) 1,000 ml @ 75 mls/hr [id number] IV 07/02/16 22:00 08/01/16 21:59 07/04/16 12:51 Diphenhydramine HCl (Benadryl) 25 mg Q6H PRN ORAL Itching/Pruritis 07/02/16 20:30 08/01/16 20:29 Heparin Sodium (Porcine) (Heparin 5000 units/ml) 5,000 units EVERY 12 HOURS SUBQ 07/02/16 22:00 08/01/16 21:59 07/04/16 07:57 Morphine Sulfate (Morphine Sulfate) 2 mg EVERY 4 HOURS PRN IVP severe Pain (Pain Scale 7-10) 07/02/16 20:30 07/09/16 20:29 07/02/16 22:15 Nitroglycerin (Ntg) 0.4 mg Q5M X 3 DOSES PRN SL Prn Chest Pain 07/02/16 20:30 08/01/16 20:29 Ondansetron HCl (Zofran) 4 mg Q6H PRN IVP Nausea & Vomiting 07/02/16 20:30 08/01/16 20:29 Pantoprazole (Protonix) 40 mg DAILY IV 07/03/16 09:00 08/02/16 08:59 07/04/16 07:58 Piperacillin Sod/ Tazobactam Sod/ Sodium Chloride (Zosyn/Sodium Chloride) 110 ml @ 27.5 mls/hr Q8H IVPB 07/03/16 00:00 07/10/16 00:00 07/04/16 07:56 Polyethylene Glycol (Miralax) 17 gm HSPRN PRN ORAL Constipation 07/02/16 20:30 08/01/16 20:29 Temazepam (Restoril) 15 mg HSPRN PRN ORAL Insomnia 07/02/16 20:30 07/09/16 20:29 Allergies: Coded Allergies: No Known Allergies (Unverified , 07/02/16) ROS Limited/Unobtainable: No Constitutional: Reports: no symptoms HEENT: Reports: no symptoms Cardiovascular: Reports: no symptoms Respiratory: Reports: no symptoms Gastrointestinal/Abdominal: Reports: abdominal pain Genitourinary: Reports: no symptoms Neurologic/Psychiatric: Reports: no symptoms Subjective 61 YO M admitted with epigastric pain and elevated liver function tests. Cover for Int Med-Dr Lau. Await endoscopy on 07/05/16. Objective Last Vital Signs Date Time Temp Pulse Resp B/P Pulse Ox O2 Delivery O2 Flow Rate FiO2 07/04/16 12:00 98.7 78 19 105/75 96 Room Air General Appearance: WD/WN, no apparent distress, alert EENT: PERRL/EOMI, normal ENT inspection, TMs normal Neck: non-tender, normal alignment, supple Cardiovascular: normal peripheral pulses, normal rate, regular rhythm, no gallop/murmur, no JVD Respiratory/Chest: chest wall non-tender, lungs clear, normal breath sounds, no respiratory distress, no accessory muscle use Abdomen: normal bowel sounds, no organomegaly, no mass, decreased bowel sounds , tender Extremities: normal range of motion, non-tender Neurologic: bankruptcy processor II-XII grossly normal, no motor/sensory deficits Skin: normal pigmentation, warm/dry Laboratory Tests Test 07/04/16 09:45 White Blood Count 5.3 K/UL (4.8-10.8) # Red Blood Count 5.06 M/UL (4.70-6.10) Hemoglobin 15.5 G/DL (14.2-18.0) Hematocrit 46.2 % (42.0-52.0) Mean Corpuscular Volume 91 FL (80-99) Mean Corpuscular Hemoglobin 30.7 PG (27.0-31.0) Mean Corpuscular Hemoglobin Concent 33.6 G/DL (32.0-36.0) Red Cell Distribution Width 11.5 % (11.6-14.8) L Platelet Count 170 K/UL (150-450) Mean Platelet Volume 7.4 FL (6.5-10.1) Neutrophils (%) (Auto) 62.9 % (45.0-75.0) Lymphocytes (%) (Auto) 21.8 % (20.0-45.0) Monocytes (%) (Auto) 10.7 % (1.0-10.0) H Eosinophils (%) (Auto) 3.7 % (0.0-3.0) H Basophils (%) (Auto) 1.0 % (0.0-2.0) Sodium Level 136 mEQ/L (135-145) Potassium Level 3.9 mEQ/L (3.4-4.9) Chloride Level 97 mEQ/L (98-107) L Carbon Dioxide Level 25 mEQ/L (20-30) Anion Gap 14 (5-15) Blood Urea Nitrogen 8 mg/dL (7-23) Creatinine 0.8 mg/dL (0.7-1.2) Estimat Glomerular Filtration Rate > 60 mL/min (>60) Glucose Level 114 mg/dL (74-106) H Calcium Level 8.2 mg/dL (8.6-10.2) L Total Bilirubin 1.5 mg/dL (0.0-1.2) H Direct Bilirubin 0.3 mg/dL (0.1-0.3) Aspartate Amino Transf (AST/SGOT) 15 U/L (5-40) Alanine Aminotransferase (ALT/SGPT) 17 U/L (3-41) Alkaline Phosphatase 49 U/L (40-129) Total Protein 6.5 g/dL (6.6-8.7) L Albumin 3.5 g/dL (3.5-5.2) Globulin 3.0 g/dL Albumin/Globulin Ratio 1.1 (1.0-2.7) Amylase Level 25 U/L (10-110) Lipase 23 U/L (< 60) Microbiology Date/Time Source Procedure Growth Status 07/02/16 16:39 Blood Blood Culture - Preliminary NO GROWTH AFTER 24 HOURS Resulted 07/02/16 16:29 Blood Blood Culture - Preliminary NO GROWTH AFTER 24 HOURS Resulted Intake and Output 07/03/16 07/04/16 19:00 07:00 Intake Total 587.5 ml 1092.5 ml Output Total 390 ml Balance 587.5 ml 702.5 ml Intake IV Total 587.5 ml 1092.5 ml Output Urine Total 390 ml # Voids 2 Assessment/Plan Problem List: (1) Epigastric pain Assessment & Plan: See GI note. Await endoscopy on Tue07/05/16. (2) Elevated liver enzymes Assessment & Plan: Resolving; see GI note. (3) Gout (4) Depression, major Status: progressing JM JOSHI Jul 04, 2016 14:50
[2016-07-04 16:00] VITALS: BP 116/70
[2016-07-04] MEDS ORDERED: Tubing IV Secondary IV ONE (16:57)
[2016-07-04] MEDS ORDERED: NS 275ml ONE (16:57)
[2016-07-04] MEDS ORDERED: D5 1/2NS 1000ml IV ONE (16:57)
[2016-07-04 20:00] VITALS: BP 138/72
[2016-07-05] VITALS (10 sets, daily range): BP systolic 115–150; BP diastolic 72–82
[2016-07-05] MEDS: D5 1/2NS 1,000 ML IV SCH ×2 (04:01→16:13)
[2016-07-05 06:24] LABS: BASOPHILS % (AUTO) 1.5 % (0.0-2.0); LYMPHOCYTES % (AUTO) 32.7 % (20.0-45.0); MEAN CORPUSCULAR HEMOGLOBIN 31.6 PG (27.0-31.0); MEAN CORPUSCULAR HGB CONC 34.8 G/DL (32.0-36.0); MEAN CORPUSCULAR VOLUME 91 FL (80-99); MEAN PLATELET VOLUME 6.4 FL (6.5-10.1); NEUTROPHILS % (AUTO) 41.9 % (45.0-75.0); PLATELET COUNT 183 K/UL (150-450); RED BLOOD COUNT 4.79 M/UL (4.70-6.10); RED CELL DISTRIBUTION WIDTH 11.4 % (11.6-14.8); WHITE BLOOD COUNT 4.6 K/UL (4.8-10.8)
[2016-07-05 06:43] LABS: ANION GAP 14 (5-15); BILIRUBIN,DIRECT 0.2 mg/dL (0.1-0.3); CALCIUM 8.7 mg/dL (8.6-10.2); CARBON DIOXIDE 24 mEQ/L (20-30); CHLORIDE 101 mEQ/L (98-107); CREATININE 0.8 mg/dL (0.7-1.2); GLOMERULAR FILTRATION RATE > 60 mL/min (>60); HEMOLYSIS 4; POTASSIUM 3.4 mEQ/L (3.4-4.9); SODIUM 139 mEQ/L (135-145); TOTAL PROTEIN 6.5 g/dL (6.6-8.7)
[2016-07-05] MEDS: Piperacillin/Tazobactam 3.375 GM in NS 110 ML IVPB SCH ×2 (08:07→16:13)
[2016-07-05] MEDS: Pantoprazole Inj IV SCH (08:08)
[2016-07-05] MEDS: Heparin 5000 units/ml inj SUBQ SCH ×2 (08:08→20:47)
--- NOTE | 2016-07-05 08:23 | Pre-Procedure Note/Attestation ---
Pre-Procedure Note/Attestation Complete Prior to Procedure Planned Procedure: not applicable Procedure Narrative: egd Indications for Procedure Pre-Operative Diagnosis: abd pain Attestation I attest that I discussed the nature of the procedure; its benefits; risks and complications; and alternatives (and the risks and benefits of such alternatives ), prior to the procedure, with the patient (or the patient's legal financial sales representative). I attest that, if there was a reasonable possibility of needing a blood transfusion, the patient (or the patient's legal financial sales representative) was given the [facility] standardized written summary, pursuant to the [employer] Blood Safety Act ([place] Health and Safety Code # 1645, as amended). I attest that I re-evaluated the patient just prior to the surgery and that there has been no change in the patient's H&P, except as documented below: ANGUS CHARLES Jul 05, 2016 08:23
[2016-07-05] MEDS ORDERED: Propofol 10mg/ml 20ml IV ONE (08:30)
--- NOTE | 2016-07-05 08:58 | Anethesia Preoperative Eval ---
Anesthesia Pre-op PMH/ROS General Date of Evaluation: Jul 05, 2016 Time of Evaluation: 08:30 ASA Score: ASA 2 Mallampati Score Class I : Soft palate, uvula, fauces, pillars visible Class II: Soft palate, uvula, fauces visible Class III: Soft palate, base of uvula visible Class IV: Only hard plate visible Mallampati Classification: Class II Surgeon: Royer Diagnosis: Abdominal pain Surgical Procedure: EGD Anesthesia History: none Allergies: Coded Allergies: No Known Allergies (Unverified , 07/02/16) Past Medical History Cardiovascular: Denies: CAD, HTN, NV, arrhythmia, other, valve dz Pulmonary: Denies: COPD, ALPA, asthma, other Gastrointestinal/Genitourinary: Denies: CRI, ESRD, GERD, other Neurologic/Psychiatric: Reports: depression/anxiety, Denies: CVA, TIA, dementia, other Endocrine: Denies: DM, hypothyroidism, other, steroids HEENT: Denies: MENTASTA (L), MENTASTA (R), cataract (L), cataract (R), glaucoma, other Hematology/Immune: Denies: DVT, anemia, bleeding disorder, other Musculoskeletal/Integumentary: Denies: DDD, DJD, OA, RA, edema, other PMH Narrative: HTN, depression PSxH Narrative: No prior surgery Anesthesia Pre-op Phys. Exam Physician Exam Last Vital Signs Date Time Temp Pulse Resp B/P Pulse Ox O2 Delivery O2 Flow Rate FiO2 07/05/16 08:22 97.9 68 20 138/79 99 Room Air Constitutional: NAD Neurologic: CN 2-12 intact Cardiovascular: RRR, no M/R/G Respiratory: CTA Gastrointestinal: S/NT/ND Airway Exam Mallampati Score: Class II MO: full ROM: full Teeth: intact Anesthesia Pre-op A/P Labs Hematology Test 07/04/16 09:45 07/05/16 05:00 White Blood Count 5.3 K/UL (4.8-10.8) # 4.6 K/UL (4.8-10.8) L Red Blood Count 5.06 M/UL (4.70-6.10) 4.79 M/UL (4.70-6.10) Hemoglobin 15.5 G/DL (14.2-18.0) 15.1 G/DL (14.2-18.0) Hematocrit 46.2 % (42.0-52.0) 43.5 % (42.0-52.0) Mean Corpuscular Volume 91 FL (80-99) 91 FL (80-99) Mean Corpuscular Hemoglobin 30.7 PG (27.0-31.0) 31.6 PG (27.0-31.0) H Mean Corpuscular Hemoglobin Concent 33.6 G/DL (32.0-36.0) 34.8 G/DL (32.0-36.0) Red Cell Distribution Width 11.5 % (11.6-14.8) L 11.4 % (11.6-14.8) L Platelet Count 170 K/UL (150-450) 183 K/UL (150-450) Mean Platelet Volume 7.4 FL (6.5-10.1) 6.4 FL (6.5-10.1) L Neutrophils (%) (Auto) 62.9 % (45.0-75.0) 41.9 % (45.0-75.0) L Lymphocytes (%) (Auto) 21.8 % (20.0-45.0) 32.7 % (20.0-45.0) Monocytes (%) (Auto) 10.7 % (1.0-10.0) H 14.0 % (1.0-10.0) H Eosinophils (%) (Auto) 3.7 % (0.0-3.0) H 10.0 % (0.0-3.0) H Basophils (%) (Auto) 1.0 % (0.0-2.0) 1.5 % (0.0-2.0) Chemistry Test 07/04/16 09:45 07/05/16 05:00 Sodium Level 136 mEQ/L (135-145) 139 mEQ/L (135-145) Potassium Level 3.9 mEQ/L (3.4-4.9) 3.4 mEQ/L (3.4-4.9) Chloride Level 97 mEQ/L (98-107) L 101 mEQ/L (98-107) Carbon Dioxide Level 25 mEQ/L (20-30) 24 mEQ/L (20-30) Anion Gap 14 (5-15) 14 (5-15) Blood Urea Nitrogen 8 mg/dL (7-23) 9 mg/dL (7-23) Creatinine 0.8 mg/dL (0.7-1.2) 0.8 mg/dL (0.7-1.2) Estimat Glomerular Filtration Rate > 60 mL/min (>60) > 60 mL/min (>60) Glucose Level 114 mg/dL (74-106) H 109 mg/dL (74-106) H Calcium Level 8.2 mg/dL (8.6-10.2) L 8.7 mg/dL (8.6-10.2) Total Bilirubin 1.5 mg/dL (0.0-1.2) H 1.0 mg/dL (0.0-1.2) Direct Bilirubin 0.3 mg/dL (0.1-0.3) 0.2 mg/dL (0.1-0.3) Aspartate Amino Transf (AST/SGOT) 15 U/L (5-40) 15 U/L (5-40) Alanine Aminotransferase (ALT/SGPT) 17 U/L (3-41) 17 U/L (3-41) Alkaline Phosphatase 49 U/L (40-129) 46 U/L (40-129) Total Protein 6.5 g/dL (6.6-8.7) L 6.5 g/dL (6.6-8.7) L Albumin 3.5 g/dL (3.5-5.2) 3.6 g/dL (3.5-5.2) Globulin 3.0 g/dL Albumin/Globulin Ratio 1.1 (1.0-2.7) Amylase Level 25 U/L (10-110) Lipase 23 U/L (< 60) Risk Assessment & Plan Assessment: Abdominal pain Plan: GA, TIVA Pre-Antibiotics Drug: None PHILLIP VERDUGO M.D. Jul 05, 2016 08:58
[2016-07-05] MEDS ORDERED: fentaNYL 100 mcg/2 mL IV PRN (09:00)
--- NOTE | 2016-07-05 09:00 | Immediate Post-Op Evaluation ---
Immediate Post-Op Evalulation Immediate Post-Op Evalulation Procedure: EGD Date of Evaluation: Jul 05, 2016 Time of Evaluation: 09:00 IV Fluids: 150 Blood Pressure Systolic: 117 Blood Pressure Diastolic: 80 Pulse Rate: 64 Respiratory Rate: 17 O2 Sat by Pulse Oximetry: 98 Temperature (Fahrenheit): 97.8 Pain Score (1-10): 0 Nausea: No Vomiting: No Complications No complication Patient Status: awake, patent, none Hydration Status: adequate Drug: None PHILLIP VERDUGO M.D. Jul 05, 2016 09:00
--- NOTE | 2016-07-05 09:05 | Endoscopy Procedure Note ---
Endoscopy Procedure Note Indication for Procedure: abd pain Procedures Performed: EGD Operative Findings/Diagnosis: gastritis Specimen: yes Pt Tolerated Procedure Well: Yes Estimated Blood Loss: none Anesthesiologist: meme Anesthesia: MAC Implant(s) used?: No 50 yrs or older w/o bx or poly: Not Applicable 10yrs. F/U not recommended: Not Applicable ANGUS CHARLES Jul 05, 2016 09:05
--- NOTE | 2016-07-05 09:30 | Diagnostic Imaging Report ---
Clinical Indication: Epigastric abdominal pain, associated with nausea, the gastric ulcer, gastritis, gallbladder disease, pancreatitis Technique: Patient given oral contrast. Precontrast spiral acquisitions obtained through the abdomen and pelvis. IV administration nonionic contrast. Multiphasic spiral acquisitions obtained through the abdomen and pelvis. Multiplanar reconstructions were generated. Total dose length product 1930 mGycm. CTDIvol(s) 13, 8, 105, 16, 15 mGy Comparison: None Findings: There is extensive colonic diverticulosis. There is diffuse wall thickening of the sigmoid colon. There is infiltration of the perisigmoid fat proximally. No extraluminal gas. No extraluminal fluid collections. The appendix is normal. No small bowel distention. No free or loculated intraperitoneal air or fluid. The distal esophagus demonstrates mild wall thickening. There is prominent periesophageal fat which may represent a small fat-containing hiatal hernia. The stomach is nondistended. The duodenum is unremarkable. The gallbladder contains questionably some small gallstones. No gallbladder wall thickening nor pericholecystic edema. The liver is unremarkable. The spleen contains multiple calcifications. The pancreas is unremarkable. There are prominent peripancreatic lymph nodes present. The adrenals are unremarkable. There is a complex right lower pole renal cyst with at least one septation and suggestion of a partial thick wall. There is a cyst small upper pole right renal cyst. The left kidney is unremarkable except for subcentimeter lower pole lesions which are too small to characterize. No retroperitoneal or mesenteric mass or adenopathy. No pelvic mass or adenopathy. Prostate contains calcifications. There is calcification within the anterior bladder wall The included lung bases are clear. The bones are unremarkable. Impression: Findings are compatible with uncomplicated acute sigmoid diverticulitis. Dr. Lau notified at the time of interpretation Complex right lower pole renal cyst. Further evaluation with ultrasound recommended Subcentimeter low-attenuation lesions within the left kidney, too small to characterize, most likely benign simple cysts. No further followup necessary Equivocal cholelithiasis Incidental findings as noted, including prostatic calcifications, anterior bladder wall calcification, splenic granulomatous calcifications The CT scanner at [facility] is accredited by the [employer] and the scans are performed using protocols designed to limit radiation exposure to as low as reasonably achievable to attain images of sufficient resolution adequate for diagnostic evaluation.
[2016-07-05] MEDS ORDERED: D5 1/2NS 1000ml IV ONE (10:43)
--- NOTE | 2016-07-05 11:48 | Internal Med Progress Note ---
Subjective Date of Service: Jul 05, 2016 Physician Name Jm Joshi Attending Physician Aj Lau MD Current Medications Medications (Trade) Dose Ordered Sig/Niraj Route PRN Reason Start Time Stop Time Status Last Admin Dose Admin Acetaminophen (Tylenol) 650 mg Q4H PRN ORAL fever 07/02/16 20:30 08/01/16 20:29 07/03/16 23:05 Acetaminophen (Tylenol) 650 mg Q4H PRN ORAL Mild Pain (Pain Scale 1-3) 07/05/16 09:00 07/05/16 15:00 Al Hydroxide/Mg Hydroxide (Mylanta II) 30 ml Q6H PRN ORAL dyspepsia 07/02/16 20:30 08/01/16 20:29 Dextrose STAT PRN IV Hypoglycemia 07/02/16 20:30 08/01/16 20:29 Dextrose/Sodium Chloride (D5 0.45% NS) 1,000 ml @ 75 mls/hr [id number] IV 07/02/16 22:00 08/01/16 21:59 07/05/16 04:01 Diphenhydramine HCl (Benadryl) 25 mg Q6H PRN ORAL Itching/Pruritis 07/02/16 20:30 08/01/16 20:29 Fentanyl Citrate (Sublimaze 100 mcg/2 mL) 25 mcg Q10M PRN IV Moderate Pain (Pain Scale 4-6) 07/05/16 09:00 07/05/16 15:00 Heparin Sodium (Porcine) (Heparin 5000 units/ml) 5,000 units EVERY 12 HOURS SUBQ 07/02/16 22:00 08/01/16 21:59 07/05/16 08:08 Morphine Sulfate (Morphine Sulfate) 2 mg EVERY 4 HOURS PRN IVP severe Pain (Pain Scale 7-10) 07/02/16 20:30 07/09/16 20:29 07/02/16 22:15 Nitroglycerin (Ntg) 0.4 mg Q5M X 3 DOSES PRN SL Prn Chest Pain 07/02/16 20:30 08/01/16 20:29 Ondansetron HCl (Zofran) 4 mg Q1H PRN IVP Nausea & Vomiting 07/05/16 09:00 07/05/16 15:00 Ondansetron HCl (Zofran) 4 mg Q6H PRN IVP Nausea & Vomiting 07/02/16 20:30 08/01/16 20:29 Pantoprazole (Protonix) 40 mg DAILY IV 07/03/16 09:00 08/02/16 08:59 07/05/16 08:08 Piperacillin Sod/ Tazobactam Sod/ Sodium Chloride (Zosyn/Sodium Chloride) 110 ml @ 27.5 mls/hr Q8H IVPB 07/03/16 00:00 07/10/16 00:00 07/05/16 08:07 Polyethylene Glycol (Miralax) 17 gm HSPRN PRN ORAL Constipation 07/02/16 20:30 08/01/16 20:29 Temazepam (Restoril) 15 mg HSPRN PRN ORAL Insomnia 07/02/16 20:30 07/09/16 20:29 Allergies: Coded Allergies: No Known Allergies (Unverified , 07/02/16) ROS Limited/Unobtainable: No Constitutional: Reports: no symptoms HEENT: Reports: no symptoms Cardiovascular: Reports: no symptoms Respiratory: Reports: no symptoms Gastrointestinal/Abdominal: Reports: no symptoms Genitourinary: Reports: no symptoms Neurologic/Psychiatric: Reports: no symptoms Subjective 61 YO M admitted with epigastric pain and elevated liver function tests. Cover for Int Med-Dr Lau. S/P endoscopy on 07/05/16. Objective Last Vital Signs Date Time Temp Pulse Resp B/P Pulse Ox O2 Delivery O2 Flow Rate FiO2 07/05/16 09:20 98.0 66 20 115/72 97 Room Air 07/05/16 09:00 6.0 Laboratory Tests Test 07/05/16 05:00 White Blood Count 4.6 K/UL (4.8-10.8) L Red Blood Count 4.79 M/UL (4.70-6.10) Hemoglobin 15.1 G/DL (14.2-18.0) Hematocrit 43.5 % (42.0-52.0) Mean Corpuscular Volume 91 FL (80-99) Mean Corpuscular Hemoglobin 31.6 PG (27.0-31.0) H Mean Corpuscular Hemoglobin Concent 34.8 G/DL (32.0-36.0) Red Cell Distribution Width 11.4 % (11.6-14.8) L Platelet Count 183 K/UL (150-450) Mean Platelet Volume 6.4 FL (6.5-10.1) L Neutrophils (%) (Auto) 41.9 % (45.0-75.0) L Lymphocytes (%) (Auto) 32.7 % (20.0-45.0) Monocytes (%) (Auto) 14.0 % (1.0-10.0) H Eosinophils (%) (Auto) 10.0 % (0.0-3.0) H Basophils (%) (Auto) 1.5 % (0.0-2.0) Sodium Level 139 mEQ/L (135-145) Potassium Level 3.4 mEQ/L (3.4-4.9) Chloride Level 101 mEQ/L (98-107) Carbon Dioxide Level 24 mEQ/L (20-30) Anion Gap 14 (5-15) Blood Urea Nitrogen 9 mg/dL (7-23) Creatinine 0.8 mg/dL (0.7-1.2) Estimat Glomerular Filtration Rate > 60 mL/min (>60) Glucose Level 109 mg/dL (74-106) H Calcium Level 8.7 mg/dL (8.6-10.2) Total Bilirubin 1.0 mg/dL (0.0-1.2) Direct Bilirubin 0.2 mg/dL (0.1-0.3) Aspartate Amino Transf (AST/SGOT) 15 U/L (5-40) Alanine Aminotransferase (ALT/SGPT) 17 U/L (3-41) Alkaline Phosphatase 46 U/L (40-129) Total Protein 6.5 g/dL (6.6-8.7) L Albumin 3.6 g/dL (3.5-5.2) Hepatitis A IgM Antibody Pending Hepatitis B Surface Antigen Pending Hepatitis B Core IgM Antibody Pending Hepatitis C Antibody Pending Microbiology Date/Time Source Procedure Growth Status 07/02/16 16:39 Blood Blood Culture - Preliminary NO GROWTH AFTER 48 HOURS Resulted 07/02/16 16:29 Blood Blood Culture - Preliminary NO GROWTH AFTER 48 HOURS Resulted Intake and Output 07/04/16 07/05/16 19:00 07:00 Intake Total 382.5 ml 785.0 ml Output Total 400 ml Balance 382.5 ml 385.0 ml Intake IV Total 382.5 ml 785.0 ml Output Urine Total 400 ml Objective General Appearance: WD/WN, no apparent distress, alert EENT: PERRL/EOMI, normal ENT inspection, TMs normal Neck: non-tender, normal alignment, supple Cardiovascular: normal peripheral pulses, normal rate, regular rhythm, no gallop/murmur, no JVD Respiratory/Chest: chest wall non-tender, lungs clear, normal breath sounds, no respiratory distress, no accessory muscle use Abdomen: normal bowel sounds, no organomegaly, no mass, decreased bowel sounds , tender Extremities: normal range of motion, non-tender Neurologic: service consultant II-XII grossly normal, no motor/sensory deficits Skin: normal pigmentation, warm/dry Assessment/Plan Problem List: (1) Epigastric pain Assessment & Plan: See GI note. S/P endoscopy on Tue07/05/16. (2) Elevated liver enzymes Assessment & Plan: Resolving; see GI note. (3) Gout (4) Depression, major (5) Gastritis Assessment & Plan: Continue protonix IV (6) Diverticulitis of sigmoid colon Assessment & Plan: See GI note. Continue zosyn. Status: not improved JM JOSHI Jul 05, 2016 11:48
--- NOTE | 2016-07-05 20:02 | Pulmonology Progress Note ---
Assessment/Plan Problems: (1) Sepsis (2) Diverticulitis of sigmoid colon (3) Gastritis (4) Elevated liver enzymes (5) HTN (hypertension) (6) Epigastric pain Assessment/Plan IV antibiotics advance diet as tolerated check BC, sofar negative symptomatic treatment Subjective Interval Events: had EGD showing gastritis Allergies: Coded Allergies: No Known Allergies (Unverified , 07/02/16) Objective Last 24 Hour Vital Signs Date Time Temp Pulse Resp B/P Pulse Ox O2 Delivery O2 Flow Rate FiO2 07/05/16 16:03 98.4 69 20 133/75 97 Room Air 07/05/16 11:49 98.4 69 20 129/72 95 Room Air 07/05/16 09:20 98.0 66 20 115/72 97 Room Air 07/05/16 09:05 65 16 129/78 98 Room Air 07/05/16 09:00 67 18 130/81 99 Simple Mask 6.0 07/05/16 09:00 64 17 98 07/05/16 08:55 97.8 66 24 117/80 99 Simple Mask 6.0 07/05/16 08:22 97.9 68 20 138/79 99 Room Air 07/05/16 04:00 98.2 70 20 135/81 96 Room Air 07/05/16 00:00 98.2 76 20 125/74 95 Room Air Intake and Output 07/04/16 07/05/16 19:00 07:00 Intake Total 382.5 ml 785.0 ml Output Total 400 ml Balance 382.5 ml 385.0 ml IV Total 382.5 ml 785.0 ml Output Urine Total 400 ml General Appearance: WD/WN HEENT: normocephalic Respiratory/Chest: chest wall non-tender Cardiovascular: normal peripheral pulses Abdomen: normal bowel sounds Genitourinary: normal external genitalia Extremities: no clubbing Neurologic/Psychiatric: potato chip cooker machine II-XII grossly normal Lymphatic: no neck adenopathy Laboratory Tests 07/05/16 05:00: White Blood Count 4.6L, Red Blood Count 4.79, Hemoglobin 15.1, Hematocrit 43.5, Mean Corpuscular Volume 91, Mean Corpuscular Hemoglobin 31.6H, Mean Corpuscular Hemoglobin Concent 34.8, Red Cell Distribution Width 11.4L, Platelet Count 183, Mean Platelet Volume 6.4L, Neutrophils (%) (Auto) 41.9L, Lymphocytes (%) (Auto) 32.7, Monocytes (%) (Auto) 14.0H, Eosinophils (%) (Auto) 10.0H, Basophils (%) ( Auto) 1.5, Sodium Level 139, Potassium Level 3.4, Chloride Level 101, Carbon Dioxide Level 24, Anion Gap 14, Blood Urea Nitrogen 9, Creatinine 0.8, Estimat Glomerular Filtration Rate > 60, Glucose Level 109H, Calcium Level 8.7, Total Bilirubin 1.0, Direct Bilirubin 0.2, Aspartate Amino Transf (AST/SGOT) 15, Alanine Aminotransferase (ALT/SGPT) 17, Alkaline Phosphatase 46, Total Protein 6.5L, Albumin 3.6, Hepatitis A IgM Antibody [Pending], Hepatitis B Surface Antigen [Pending], Hepatitis B Core IgM Antibody [Pending], Hepatitis C Antibody [Pending] Current Medications Medications (Trade) Dose Ordered Sig/Niraj Route PRN Reason Start Time Stop Time Status Last Admin Dose Admin Acetaminophen (Tylenol) 650 mg Q4H PRN ORAL fever 07/02/16 20:30 08/01/16 20:29 07/03/16 23:05 Al Hydroxide/Mg Hydroxide (Mylanta II) 30 ml Q6H PRN ORAL dyspepsia 07/02/16 20:30 08/01/16 20:29 Dextrose STAT PRN IV Hypoglycemia 07/02/16 20:30 08/01/16 20:29 Dextrose/Sodium Chloride (D5 0.45% NS) 1,000 ml @ 75 mls/hr [id number] IV 07/02/16 22:00 08/01/16 21:59 07/05/16 16:13 Diphenhydramine HCl (Benadryl) 25 mg Q6H PRN ORAL Itching/Pruritis 07/02/16 20:30 08/01/16 20:29 Heparin Sodium (Porcine) (Heparin 5000 units/ml) 5,000 units EVERY 12 HOURS SUBQ 07/02/16 22:00 08/01/16 21:59 07/05/16 08:08 Morphine Sulfate (Morphine Sulfate) 2 mg EVERY 4 HOURS PRN IVP severe Pain (Pain Scale 7-10) 07/02/16 20:30 07/09/16 20:29 07/02/16 22:15 Nitroglycerin (Ntg) 0.4 mg Q5M X 3 DOSES PRN SL Prn Chest Pain 07/02/16 20:30 08/01/16 20:29 Ondansetron HCl (Zofran) 4 mg Q6H PRN IVP Nausea & Vomiting 07/02/16 20:30 08/01/16 20:29 Pantoprazole (Protonix) 40 mg DAILY IV 07/03/16 09:00 08/02/16 08:59 07/05/16 08:08 Piperacillin Sod/ Tazobactam Sod/ Sodium Chloride (Zosyn/Sodium Chloride) 110 ml @ 27.5 mls/hr Q8H IVPB 07/03/16 00:00 07/10/16 00:00 07/05/16 16:13 Polyethylene Glycol (Miralax) 17 gm HSPRN PRN ORAL Constipation 07/02/16 20:30 08/01/16 20:29 Temazepam (Restoril) 15 mg HSPRN PRN ORAL Insomnia 07/02/16 20:30 07/09/16 20:29 GARIMA TORRES Jul 05, 2016 20:02
--- NOTE | 2016-07-05 20:28 | Procedure Note ---
DATE OF PROCEDURE: 07/05/2016 SURGEON: London Linton M.D. PROCEDURE: Upper endoscopy with biopsy. ANESTHESIA: Gelacio Lagunas M.D. INSTRUMENT: Olympus adult flexible upper endoscope. INDICATION: Abdominal pain. REASON FOR PROCEDURE: The procedure, risks, benefits, and possible consequences, including hemorrhage, aspiration, perforation and infection, and alternative treatments, were explained to the patient/legal guardian by Dr. London Linton and the patient/legal guardian understood and accepted these risks. DESCRIPTION OF PROCEDURE: After informed consent was obtained and the patient was adequately sedated, Olympus upper endoscope was advanced from mouth into the second portion of the duodenum and retroflexion was performed in the stomach. The patient had evidence of diffuse gastritis. Random biopsy from antrum was obtained to rule out H. pylori infection. In the duodenum, there was evidence of [id number] duodenitis. Retroflexion of the stomach showed evidence of hiatal hernia, small. The patient tolerated the procedure well without any complication. SUMMARY OF FINDINGS: 1. Small hiatal hernia. 2. Gastritis, status post biopsy. 3. Moderate duodenitis. RECOMMENDATIONS: Follow up biopsy results and treat accordingly. I want to thank, Dr. Aj Lau, for this kind referral. London Linton M.D. DR: KEVIN JOB#: [id number] CC: Aj Lau M.D.
[2016-07-06] VITALS: BP 125/73
[2016-07-06 04:00] VITALS: BP 126/76
[2016-07-06] MEDS: D5 1/2NS 1,000 ML IV SCH ×2 (06:00→15:08)
[2016-07-06 07:10] LABS: BASOPHILS % (AUTO) 1.3 % (0.0-2.0); EOSINOPHILS % (AUTO) 10.7 % (0.0-3.0); LYMPHOCYTES % (AUTO) 38.5 % (20.0-45.0); MEAN CORPUSCULAR HGB CONC 34.3 G/DL (32.0-36.0); MEAN CORPUSCULAR VOLUME 90 FL (80-99); MEAN PLATELET VOLUME 6.9 FL (6.5-10.1); MONOCYTES % (AUTO) 12.3 % (1.0-10.0); NEUTROPHILS % (AUTO) 37.3 % (45.0-75.0); PLATELET COUNT 221 K/UL (150-450); RED BLOOD COUNT 5.07 M/UL (4.70-6.10); RED CELL DISTRIBUTION WIDTH 11.3 % (11.6-14.8); WHITE BLOOD COUNT 5.3 K/UL (4.8-10.8)
[2016-07-06 07:18] LABS: ANION GAP 15 (5-15); CALCIUM 8.8 mg/dL (8.6-10.2); CARBON DIOXIDE 24 mEQ/L (20-30); CHLORIDE 101 mEQ/L (98-107); CREATININE 0.8 mg/dL (0.7-1.2); GLOMERULAR FILTRATION RATE > 60 mL/min (>60); HEMOLYSIS 2; POTASSIUM 3.6 mEQ/L (3.4-4.9); SODIUM 140 mEQ/L (135-145)
[2016-07-06 07:51] VITALS: BP 139/86
[2016-07-06] MEDS: Heparin 5000 units/ml inj SUBQ SCH (08:30)
[2016-07-06] MEDS: Pantoprazole Inj IV SCH (08:30)
[2016-07-06] MEDS: Piperacillin/Tazobactam 3.375 GM in NS 110 ML IVPB SCH ×4 (08:31→16:00)
--- NOTE | 2016-07-06 10:40 | GI Progress Note ---
Assessment/Plan Problems: (1) Diverticulitis of sigmoid colon ICD Codes: K57.32 - Diverticulitis of large intestine without perforation or abscess without bleeding SNOMED: 162347895 (2) Gastritis ICD Codes: K29.70 - Gastritis, unspecified, without bleeding SNOMED: 2829234 (3) Elevated liver enzymes ICD Codes: R74.8 - Abnormal levels of other serum enzymes SNOMED: 514792026, 527559274 (4) Epigastric pain ICD Codes: R10.13 - Epigastric pain SNOMED: 55348537 (5) HTN (hypertension) ICD Codes: I10 - Essential (primary) hypertension SNOMED: 19615357 (6) Abdominal pain ICD Codes: R10.9 - Unspecified abdominal pain SNOMED: 34963884 Status: stable Status Narrative Discussed with Dr. Linton. Assessment/Plan SUMMARY OF FINDINGS: 1. Small hiatal hernia. 2. Gastritis, status post biopsy. 3. Moderate duodenitis. Hep panel negative RECOMMENDATIONS: OK for DC per GI standpoint fu biopsy adv to regular diet abx ppi fu labs Subjective Gastrointestinal/Abdominal: Reports: abdominal pain - resolved Objective Last 24 Hour Vital Signs Date Time Temp Pulse Resp B/P Pulse Ox O2 Delivery O2 Flow Rate FiO2 07/06/16 07:51 97.3 64 18 139/86 95 Room Air 07/06/16 04:00 98.8 66 18 126/76 96 Room Air 07/06/16 00:00 97.7 67 18 125/73 96 Room Air 07/05/16 22:44 98.6 07/05/16 20:00 100.9 69 20 150/82 96 Room Air 07/05/16 16:03 98.4 69 20 133/75 97 Room Air 07/05/16 11:49 98.4 69 20 129/72 95 Room Air Intake and Output 07/05/16 07/06/16 19:00 07:00 Intake Total 1320.0 ml 1640.0 ml Output Total 300 ml 1600 ml Balance 1020.0 ml 40.0 ml Intake Oral 240 ml 800 ml IV Total 1080.0 ml 840.0 ml Output Urine Total 300 ml 1600 ml # Voids 1 3 Laboratory Tests Test 07/06/16 04:50 White Blood Count 5.3 K/UL (4.8-10.8) Red Blood Count 5.07 M/UL (4.70-6.10) Hemoglobin 15.7 G/DL (14.2-18.0) Hematocrit 45.8 % (42.0-52.0) Mean Corpuscular Volume 90 FL (80-99) Mean Corpuscular Hemoglobin 31.0 PG (27.0-31.0) Mean Corpuscular Hemoglobin Concent 34.3 G/DL (32.0-36.0) Red Cell Distribution Width 11.3 % (11.6-14.8) L Platelet Count 221 K/UL (150-450) Mean Platelet Volume 6.9 FL (6.5-10.1) Neutrophils (%) (Auto) 37.3 % (45.0-75.0) L Lymphocytes (%) (Auto) 38.5 % (20.0-45.0) Monocytes (%) (Auto) 12.3 % (1.0-10.0) H Eosinophils (%) (Auto) 10.7 % (0.0-3.0) H Basophils (%) (Auto) 1.3 % (0.0-2.0) Sodium Level 140 mEQ/L (135-145) Potassium Level 3.6 mEQ/L (3.4-4.9) Chloride Level 101 mEQ/L (98-107) Carbon Dioxide Level 24 mEQ/L (20-30) Anion Gap 15 (5-15) Blood Urea Nitrogen 9 mg/dL (7-23) Creatinine 0.8 mg/dL (0.7-1.2) Estimat Glomerular Filtration Rate > 60 mL/min (>60) Glucose Level 107 mg/dL (74-106) H Calcium Level 8.8 mg/dL (8.6-10.2) Height (Feet): 5 Height (Inches): 5.00 Weight (Pounds): 145 General Appearance: no apparent distress, alert Cardiovascular: normal rate Respiratory/Chest: normal breath sounds, no respiratory distress Abdominal Exam: normal bowel sounds, non tender, soft Extremities: normal range of motion Rosina Ji N.P. Jul 06, 2016 10:40
--- NOTE | 2016-07-06 11:31 | Consultation ---
Consult Note Consult Note ID Dic # [id number] AIDEN SALOMON M.D. Jul 06, 2016 11:31
[2016-07-06 12:00] VITALS: BP 140/83
[2016-07-06 16:00] VITALS: BP 118/75
--- NOTE | 2016-07-06 18:12 | Internal Med Progress Note ---
Subjective Date of Service: Jul 06, 2016 Physician Name JoshiJm Attending Physician Aj Lau MD Current Medications Medications (Trade) Dose Ordered Sig/Niraj Route PRN Reason Start Time Stop Time Status Last Admin Dose Admin Acetaminophen (Tylenol) 650 mg Q4H PRN ORAL fever 07/02/16 20:30 08/01/16 20:29 07/05/16 21:45 Al Hydroxide/Mg Hydroxide (Mylanta II) 30 ml Q6H PRN ORAL dyspepsia 07/02/16 20:30 08/01/16 20:29 Dextrose STAT PRN IV Hypoglycemia 07/02/16 20:30 08/01/16 20:29 Dextrose/Sodium Chloride (D5 0.45% NS) 1,000 ml @ 75 mls/hr [id number] IV 07/02/16 22:00 08/01/16 21:59 07/06/16 15:08 Diphenhydramine HCl (Benadryl) 25 mg Q6H PRN ORAL Itching/Pruritis 07/02/16 20:30 08/01/16 20:29 Heparin Sodium (Porcine) (Heparin 5000 units/ml) 5,000 units EVERY 12 HOURS SUBQ 07/02/16 22:00 08/01/16 21:59 07/06/16 08:30 Morphine Sulfate (Morphine Sulfate) 2 mg EVERY 4 HOURS PRN IVP severe Pain (Pain Scale 7-10) 07/02/16 20:30 07/09/16 20:29 07/02/16 22:15 Nitroglycerin (Ntg) 0.4 mg Q5M X 3 DOSES PRN SL Prn Chest Pain 07/02/16 20:30 08/01/16 20:29 Ondansetron HCl (Zofran) 4 mg Q6H PRN IVP Nausea & Vomiting 07/02/16 20:30 08/01/16 20:29 Pantoprazole (Protonix) 40 mg DAILY IV 07/03/16 09:00 08/02/16 08:59 07/06/16 08:30 Piperacillin Sod/ Tazobactam Sod/ Sodium Chloride (Zosyn/Sodium Chloride) 110 ml @ 27.5 mls/hr Q8H IVPB 07/03/16 00:00 07/10/16 00:00 07/06/16 08:31 Polyethylene Glycol (Miralax) 17 gm HSPRN PRN ORAL Constipation 07/02/16 20:30 08/01/16 20:29 Temazepam (Restoril) 15 mg HSPRN PRN ORAL Insomnia 07/02/16 20:30 07/09/16 20:29 Allergies: Coded Allergies: No Known Allergies (Unverified , 07/02/16) ROS Limited/Unobtainable: No Constitutional: Reports: no symptoms HEENT: Reports: no symptoms Cardiovascular: Reports: no symptoms Respiratory: Reports: no symptoms Gastrointestinal/Abdominal: Reports: abdominal pain Genitourinary: Reports: no symptoms Neurologic/Psychiatric: Reports: no symptoms Subjective 61 YO M admitted with epigastric pain and elevated liver function tests. Cover for Int Med-Dr Lau. S/P endoscopy on 07/05/16 Await discharge home today. Objective Last Vital Signs Date Time Temp Pulse Resp B/P Pulse Ox O2 Delivery O2 Flow Rate FiO2 07/06/16 12:00 97.7 66 18 140/83 97 Room Air 07/05/16 09:00 6.0 Laboratory Tests Test 07/06/16 04:50 White Blood Count 5.3 K/UL (4.8-10.8) Red Blood Count 5.07 M/UL (4.70-6.10) Hemoglobin 15.7 G/DL (14.2-18.0) Hematocrit 45.8 % (42.0-52.0) Mean Corpuscular Volume 90 FL (80-99) Mean Corpuscular Hemoglobin 31.0 PG (27.0-31.0) Mean Corpuscular Hemoglobin Concent 34.3 G/DL (32.0-36.0) Red Cell Distribution Width 11.3 % (11.6-14.8) L Platelet Count 221 K/UL (150-450) Mean Platelet Volume 6.9 FL (6.5-10.1) Neutrophils (%) (Auto) 37.3 % (45.0-75.0) L Lymphocytes (%) (Auto) 38.5 % (20.0-45.0) Monocytes (%) (Auto) 12.3 % (1.0-10.0) H Eosinophils (%) (Auto) 10.7 % (0.0-3.0) H Basophils (%) (Auto) 1.3 % (0.0-2.0) Sodium Level 140 mEQ/L (135-145) Potassium Level 3.6 mEQ/L (3.4-4.9) Chloride Level 101 mEQ/L (98-107) Carbon Dioxide Level 24 mEQ/L (20-30) Anion Gap 15 (5-15) Blood Urea Nitrogen 9 mg/dL (7-23) Creatinine 0.8 mg/dL (0.7-1.2) Estimat Glomerular Filtration Rate > 60 mL/min (>60) Glucose Level 107 mg/dL (74-106) H Calcium Level 8.8 mg/dL (8.6-10.2) Intake and Output 07/05/16 07/06/16 19:00 07:00 Intake Total 1320.0 ml 1640.0 ml Output Total 300 ml 1600 ml Balance 1020.0 ml 40.0 ml Intake Oral 240 ml 800 ml IV Total 1080.0 ml 840.0 ml Output Urine Total 300 ml 1600 ml # Voids 1 3 Objective General Appearance: WD/WN, no apparent distress, alert EENT: PERRL/EOMI, normal ENT inspection, TMs normal Neck: non-tender, normal alignment, supple Cardiovascular: normal peripheral pulses, normal rate, regular rhythm, no gallop/murmur, no JVD Respiratory/Chest: chest wall non-tender, lungs clear, normal breath sounds, no respiratory distress, no accessory muscle use Abdomen: normal bowel sounds, no organomegaly, no mass, decreased bowel sounds , tender Extremities: normal range of motion, non-tender Neurologic: nail puller II-XII grossly normal, no motor/sensory deficits Skin: normal pigmentation, warm/dry Assessment/Plan Problem List: (1) Epigastric pain Assessment & Plan: See GI note. S/P endoscopy on 07/05/16. (2) Elevated liver enzymes Assessment & Plan: Resolving; see GI note. (3) Gout (4) Depression, major (5) Gastritis Assessment & Plan: Continue protonix IV (6) Diverticulitis of sigmoid colon Assessment & Plan: See GI note. Continue zosyn. Assessment/Plan Discharge home today. Cipro 500 mg BID X 7 days and flagyl 500 mg TID X 7 days. F/U Dr Lau in 1 week. JM JOSHI Jul 06, 2016 18:12
[2016-07-06] MEDS ORDERED: PROTONIX40 MG ORAL (18:29)
[2016-07-06] MEDS ORDERED: CIPROFLOXACIN500 M2 ORAL (18:36)
[2016-07-06] MEDS ORDERED: FLAGYL500 MG ORAL (18:36)
--- NOTE | 2016-07-06 18:47 | Consultation ---
DATE OF CONSULTATION: CONSULTING PHYSICIAN: Bautista Bauer M.D REFERRING PHYSICIAN: jA Lau M.D. and Kadi Land M.D. REASON FOR CONSULTATION: Evaluation of the patient for diverticulitis, antibiotic management. HISTORY OF PRESENT ILLNESS: The patient is a 61-year-old male with multiple medical problems as listed below who came to the hospital with abdominal pain. The patient on several CT scan shows sigmoid diverticulitis. Also, the patient underwent upper endoscopy. Infectious Diseases consultation requested for further evaluation of the patient and antibiotic management. PAST MEDICAL HISTORY: Significant for: 1. . 2. Hypertension ALLERGIES: No known drug allergies. SOCIAL HISTORY: Negative for alcohol, drug use, or smoking. FAMILY HISTORY: Noncontributory. REVIEW OF SYSTEMS: A 10-point review was done and except what is mentioned has been negative. PHYSICAL EXAMINATION: VITAL SIGNS: Temperature 100.9, pulse 66, respiratory rate 18. T-max during hospitalization 101.5. HEENT: Mild pale conjunctiva. No icterus. NECK: No lymphadenopathy. CHEST: Coarse breathing sounds. HEART: S1 and S2. ABDOMEN: Soft. Moderate periumbilical pain and mild left lower quadrant tenderness. NEUROLOGIC: Awake and alert. LABORATORY AND DIAGNOSTIC DATA: White blood cells 5, hemoglobin 15, platelets 221,000. At time of admission, the patient had white blood cell count of 15. UA unremarkable. BUN 9 and creatinine 0.8. ALT, AST, alkaline phosphatase unremarkable. Blood culture no growth. CT scan of the abdomen shows chronic diverticulosis, acute sigmoid diverticulitis. ASSESSMENT: The patient is a 61-year-old male with multiple medical problems, who was admitted to this medical center with abdominal pain due to diverticulitis. The patient had fever and leukocytosis that overall has been improving. The patient currently is on Zosyn day #4. Upon improvement that can be changed to Cipro and Flagyl to complete a total of 10 days course of antibiotic treatment. PLAN: 1. We will continue the patient on Zosyn for now and later we change Cipro to complete 10 days. 2. Monitor CBC. 3. Monitor BMP. 4. Monitor cultures. Based on patient's clinical course and laboratories, we will do further recommendation. Thank you, Dr. Land, for allowing me to participate in the care of this patient. I will follow the patient with you during this hospitalization. Bautista Bauer M.D. DR: Susy JOB#: [id number] CC:
[2016-07-06] MEDS ORDERED: D5 1/2NS 1000ml IV ONE (19:37)
--- NOTE | 2016-07-08 09:43 | Discharge Summary ---
Discharge Summary Hospital Course Date of Admission Jul 02, 2016 at 18:17 Date of Discharge Jul 06, 2016 at 19:38 Admitting Diagnosis abdominal pain, sepsis HPI Bob Diane is a 61 year old male who was admitted on Jul 02, 2016 at 18: 17 for Abdominal Pain, Sepsis Hospital Course [id number] Discharge Discharge Disposition Patient was discharged to Home (01) Discharge Diagnoses: Paris Brown NP Jul 08, 2016 09:43
--- NOTE | 2016-07-09 00:18 | Discharge Summary 2 SIG ---
DATE OF ADMISSION: 07/02/2016 DATE OF DISCHARGE: 07/06/2016 CONSULTANTS: 1. London Linton M.D. 2. Bautista Bauer M.D. 3. Kadi Land M.D. BRIEF HOSPITAL COURSE: The patient is a 61-year-old male, who presented to ED, complaining of epigastric pain that has been increasing over the past week and has been worsening over the last couple of days. The pain became intolerable. He has history of epigastric pain prior to drinking coffee and after drinking coffee, and the patient states that he stopped drinking alcohol for several months secondary to epigastric pain. He was admitted for epigastric pain to rule out pancreatitis versus peptic ulcer disease. The patient had elevated liver function tests. Dr. Linton was consulted. Abdominal CT showed acute sigmoid diverticulitis. He was given Protonix and antiemetics p.r.n. He was initially started on clear liquid diet. On 07/05/2016, he underwent upper endoscopy with findings of small hiatal hernia, gastritis, and moderate duodenitis. Diet was advanced to regular diet. Dr. Bauer was also consulted for antibiotic management. The patient was given Zosyn and at discharge was advised to continue Flagyl and ciprofloxacin for seven more days. He was eventually discharged home. FINAL DIAGNOSES: 1. Acute diverticulitis of the sigmoid colon. 2. Gastritis. 3. Major depression. 4. Gout. 5. Elevated liver transaminases. 6. Status post endoscopy. 7. Hiatal hernia. 8. Gastritis. Jm Quintero M.D. I have been assigned to dictate discharge summary on this account and I was not involved in the patient's management. Paris Brown N.P. DR: Franko JOB#: [id number] CC: WEI
== END 2016-07-06 19:38 | disposition home or self-care (01) | DRG 244 ==
LOC: ENRESERVDT → ENRESERVTM → EDBD 16:16 → EMR 18:12 → 4W 18:17 → EDBEDREQ 21:10
PROC: 0DB68ZX Excision of Stomach, Via Natural or Artificial Opening Endoscopic, Diagnostic (ICD-10-PCS; principal; 2016-07-05 08:42)
DX: K57.32 Diverticulitis of large intestine without perforation or abscess without bleeding (principal); I10 Essential (primary) hypertension; K29.70 Gastritis, unspecified, without bleeding; M10.9 Gout, unspecified; F32.9 Major depressive disorder, single episode, unspecified; K44.9 Diaphragmatic hernia without obstruction or gangrene; K29.80 Duodenitis without bleeding; K82.9 Disease of gallbladder, unspecified
CPT/HCPCS: 36415; 74178; 80048; 80053; 80076; 81003; 82150; 82248; 83605; 83690; 84484; 85025; 85730; 86705; 86709; 86803; 87040; 87340; 94003; 94150; J2405